=== PATIENT | female | born 1990 | race Caucasian/White ===

== ENCOUNTER 2024-04-05 14:53 | Emergency (ER) | payer SELFPAY ==
[2024-04-05 15:00] VITALS: BP 117/77
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
[2024-04-05] MEDS: ADACEL 0.5 ML IM (17:48)
== END 2024-04-05 18:53 | disposition home or self-care (01) ==
LOC: EMR 14:53
PROVIDERS: EMERGENCY PHYSICIAN Emergency Medicine
DX: S61.411A Laceration without foreign body of right hand, initial encounter (principal); S61.011A Laceration without foreign body of right thumb without damage to nail, initial encounter; W26.8XXA Contact with other sharp object(s), not elsewhere classified, initial encounter; Z23 Encounter for immunization
CPT/HCPCS: 90471; 99283; 73120; 90715